=== PATIENT | female | born 1935 | race Two or more races ===

== ENCOUNTER 2019-12-26 10:00 | Inpatient (IN) | payer MEDICARE, MEDICAID ==
[~2019-12-26] VITALS: Ht 170.2 cm; Wt 88.6 kg
[2019-12-26] MEDS ORDERED: PIPERACILLIN/TAZ 3.375G PREMIX 50 ML IV ONE (10:30)
[2019-12-26] MEDS ORDERED: VANCOMYCIN 1 G PREMIX 200 ML IV ONE (10:30)
[2019-12-26 11:06] LABS: CHLORIDE 100 mEq/L (98-107); HEMATOCRIT. 40.4 % (36.0-48.0); HEMOGLOBIN. 12.4 g/dL (12.0-16.0); MEAN CORPUSCULAR HEMOGLOBIN 26.7 pg (28.0-32.0); MEAN CORPUSCULAR VOLUME 87.3 fL (81.0-99.0); MEAN PLATELET VOLUME 8.5 fl (7.4-10.4); PLATELET 124 x1000/uL (130-400); RED BLOOD CELL COUNT 4.62 mill/uL (4.2-5.4); RED CELL DISTRIBUTION WIDTH 19.1 % (11.6-14.6)
[2019-12-26 11:20] LABS: PROTHROMBIN TIME 10.8 sec (9.6-11.0)
[2019-12-26] MEDS ORDERED: FUROSEMIDE 20MG/2ML VIAL IVP ONE (11:30)
[2019-12-26 11:38] LABS: CLARITY URINE CLEAR (CLEAR); COLOR URINE YELLOW (YELLOW); KETONES URINE NEGATIVE (NEGATIVE); LEUKOCYTE ESTERASE URINE NEGATIVE (NEGATIVE); NITRITE URINE NEGATIVE (NEGATIVE); OCCULT BLOOD URINE NEGATIVE (NEGATIVE); PROTEIN URINE TRACE (NEGATIVE); SPECIFIC GRAVITY URINE 1.016 (1.005-1.030)
[2019-12-26 11:42] LABS: NUCLEATED RED BLOOD CELLS 1 /100 WBC; PLATELET ESTIMATE SLIGHTLY DECREASED
[2019-12-26] MEDS ORDERED: IPRATROPIUM/ALBUTEROL 0.5-3(2.5)MG/3ML NEB HHN PRN (13:30)
[2019-12-26] MEDS ORDERED: ACETAMINOPHEN 325MG TABLET PO PRN (13:30)
[2019-12-26] MEDS ORDERED: DIPHENHYDRAMINE 50MG/ML VIAL IV PRN (13:30)
[2019-12-26] MEDS ORDERED: ONDANSETRON HCL 4MG/2ML INJ IV PRN (13:30)
[2019-12-26] MEDS ORDERED: CLONIDINE 0.1MG TABLET PO PRN (13:30)
[2019-12-26 13:43] LABS: PHOSPHORUS 4.9 mg/dL (2.5-4.9)
[2019-12-26] MEDS: ENOXAPARIN 40MG/0.4ML SYR SUBCUT SCH (14:54)
[2019-12-26] MEDS: LOSARTAN POTASSIUM 25 MG TABLET PO SCH (15:14)
[2019-12-26 15:19] LABS: BG CARBOXYHEMOGLOBIN 1.2 % (0.5-1.5); BG DEOXYHEMOGLOBIN 8.7 % (0.0-5.0); BG HCO3 ACT 50.4 mmol/L (22.0-26.0); BG METHEMOGLOBIN 0.2 % (0.0-1.5); BG OXYGEN SATURATION 91.2 % (92.0-98.5); BG OXYHEMOGLOBIN 89.9 % (94.0-97.0); BG PCO2 144.6 mmHg (35.0-45.0); BG PO2 68.1 mmHg (75.0-100.0); BG SAMPLE SITE LEFT BRACHIAL; BG TOTAL HEMOGLOBIN 12.6 g/dL (12.0-18.0); BG VENT MODE NASAL CANNULA
[2019-12-26 17:00] VITALS: BP 113/49
[2019-12-26 17:30] VITALS: BP 113/49
[2019-12-26 20:00] VITALS: BP 102/43
[2019-12-26] MEDS ORDERED: NON FORMULARY PATIENT HOME MED XX SCH (20:00)
[2019-12-26] MEDS ORDERED: CARV3.1242 PO (21:22)
[2019-12-26] MEDS ORDERED: AMLO5TAB88 PO (21:22)
[2019-12-26] MEDS ORDERED: FURO40TA5 PO (21:22)
[2019-12-26] MEDS ORDERED: APIX5TAB PO (21:22)
[2019-12-26] MEDS ORDERED: AMBR10TA3 PO (21:22)
[2019-12-26] MEDS: METHYLPREDNISOLONE SOD SUCC 40 MG/ML VIAL IV SCH (22:28)
[2019-12-27] VITALS: BP 106/49
[2019-12-27 04:00] VITALS: BP 103/42
[2019-12-27] MEDS: METHYLPREDNISOLONE SOD SUCC 40 MG/ML VIAL IV SCH ×3 (05:44→21:08)
[2019-12-27 07:43] VITALS: BP 100/36
[2019-12-27] MEDS: LOSARTAN POTASSIUM 25 MG TABLET PO SCH (08:38)
[2019-12-27] MEDS: ENOXAPARIN 40MG/0.4ML SYR SUBCUT SCH (08:39)
[2019-12-27] MEDS: FUROSEMIDE 40MG/4ML VIAL IV SCH (08:39)
[2019-12-27] MEDS ORDERED: FUROSEMIDE 40MG/4ML VIAL IV SCH ×2 (09:00)
[2019-12-27] MEDS: IPRATROPIUM/ALBUTEROL 0.5-3(2.5)MG/3ML NEB HHN SCH ×4 (09:05→21:57)
[2019-12-27 11:45] VITALS: BP 103/43
[2019-12-27] MEDS: AMBRISENTAN 10MG TABLET PO SCH (13:26)
[2019-12-27 15:39] VITALS: BP 112/44
[2019-12-27 20:19] VITALS: BP 95/57
[2019-12-28] VITALS: BP 113/42
[2019-12-28] MEDS: IPRATROPIUM/ALBUTEROL 0.5-3(2.5)MG/3ML NEB HHN SCH ×6 (00:36→21:55)
[2019-12-28 04:00] VITALS: BP 123/71
[2019-12-28] MEDS: METHYLPREDNISOLONE SOD SUCC 40 MG/ML VIAL IV SCH ×3 (06:11→21:25)
[2019-12-28 07:29] LABS: BASOPHILS % 0.1 % (0.0-2.0); HEMATOCRIT. 33.4 % (36.0-48.0); HEMOGLOBIN. 10.4 g/dL (12.0-16.0); LYMPHOCYTES % 9.9 % (20.0-50.0); MEAN CORPUSCULAR HEMOGLOBIN 26.5 pg (28.0-32.0); MEAN CORPUSCULAR VOLUME 85.7 fL (81.0-99.0); MEAN PLATELET VOLUME 8.9 fl (7.4-10.4); MONOCYTES % 10.2 % (2.0-8.0); NEUTROPHILS % 79.8 % (40.0-76.0); PLATELET 110 x1000/uL (130-400); RED CELL DISTRIBUTION WIDTH 18.7 % (11.6-14.6)
[2019-12-28 07:56] LABS: CHLORIDE 97 mEq/L (98-107)
[2019-12-28 08:00] VITALS: BP 132/51
[2019-12-28] MEDS: FUROSEMIDE 40MG/4ML VIAL IV SCH ×2 (08:25→16:43)
[2019-12-28] MEDS: LOSARTAN POTASSIUM 25 MG TABLET PO SCH (08:25)
[2019-12-28] MEDS: AMBRISENTAN 10MG TABLET PO SCH (08:25)
[2019-12-28] MEDS: ENOXAPARIN 40MG/0.4ML SYR SUBCUT SCH (08:25)
[2019-12-28 12:00] VITALS: BP 137/48
[2019-12-28] MEDS ORDERED: METOLAZONE 5MG TABLET PO SCH (14:30)
[2019-12-28 16:00] VITALS: BP 131/46
[2019-12-28] MEDS ORDERED: LORAZEPAM 2MG/ML CPJ IV NR (17:30)
[2019-12-28 20:30] VITALS: BP 130/54
[2019-12-29] VITALS: BP 141/57
[2019-12-29] MEDS ORDERED: HALOPERIDOL LACTATE 5MG/ML VIAL IM PRN
[2019-12-29] MEDS: IPRATROPIUM/ALBUTEROL 0.5-3(2.5)MG/3ML NEB HHN SCH ×6 (01:30→20:15)
[2019-12-29 04:00] VITALS: BP 131/57
[2019-12-29] MEDS: METHYLPREDNISOLONE SOD SUCC 40 MG/ML VIAL IV SCH ×3 (05:10→21:54)
[2019-12-29 06:40] LABS: BASOPHILS % 0.1 % (0.0-2.0); HEMOGLOBIN. 11.7 g/dL (12.0-16.0); MEAN CORPUSCULAR HEMOGLOBIN 26.6 pg (28.0-32.0); MEAN CORPUSCULAR VOLUME 86.2 fL (81.0-99.0); MONOCYTES % 6.9 % (2.0-8.0); PLATELET 107 x1000/uL (130-400); RED CELL DISTRIBUTION WIDTH 19.4 % (11.6-14.6)
[2019-12-29 07:00] LABS: CHLORIDE 96 mEq/L (98-107)
[2019-12-29 07:23] LABS: BG BASE EXCESS 18.1 mmol/L (-2.0-2.0); BG CARBOXYHEMOGLOBIN 0.7 % (0.5-1.5); BG HCO3 ACT 47.3 mmol/L (22.0-26.0); BG METHEMOGLOBIN 0.3 % (0.0-1.5); BG OXYGEN SATURATION 88.9 % (92.0-98.5); BG PCO2 82.7 mmHg (35.0-45.0); BG PH 7.375 (7.350-7.450); BG PO2 58.5 mmHg (75.0-100.0); BG SAMPLE SITE RIGHT BRACHIAL; BG TOTAL HEMOGLOBIN 12.2 g/dL (12.0-18.0); BG VENT MODE NASAL CANNULA
[2019-12-29 08:00] VITALS: BP 140/61
[2019-12-29] MEDS: LOSARTAN POTASSIUM 25 MG TABLET PO SCH (09:02)
[2019-12-29] MEDS: FUROSEMIDE 40MG/4ML VIAL IV SCH ×2 (09:02→16:34)
[2019-12-29] MEDS: ENOXAPARIN 40MG/0.4ML SYR SUBCUT SCH (09:06)
[2019-12-29] MEDS: AMBRISENTAN 10MG TABLET PO SCH (09:06)
[2019-12-29 12:00] VITALS: BP 119/44
[2019-12-29] MEDS ORDERED: ACETAZOLAMIDE SODIUM 500MG/VIAL IV SCH (16:00)
[2019-12-29 16:20] VITALS: BP 105/43
[2019-12-29 20:18] VITALS: BP 109/47
[2019-12-30] MEDS: IPRATROPIUM/ALBUTEROL 0.5-3(2.5)MG/3ML NEB HHN SCH ×4 (00:15→15:37)
[2019-12-30 00:28] VITALS: BP 103/45
[2019-12-30 04:00] VITALS: BP 94/43
[2019-12-30] MEDS: METHYLPREDNISOLONE SOD SUCC 40 MG/ML VIAL IV SCH ×2 (05:24→14:39)
[2019-12-30 07:32] LABS: BASOPHILS % 0.1 % (0.0-2.0); HEMATOCRIT. 37.2 % (36.0-48.0); HEMOGLOBIN. 11.5 g/dL (12.0-16.0); LYMPHOCYTES % 8.7 % (20.0-50.0); MEAN CORPUSCULAR HEMOGLOBIN 26.3 pg (28.0-32.0); MEAN PLATELET VOLUME 9.3 fl (7.4-10.4); MONOCYTES % 10.8 % (2.0-8.0); NEUTROPHILS % 80.4 % (40.0-76.0); PLATELET 114 x1000/uL (130-400); RED BLOOD CELL COUNT 4.38 mill/uL (4.2-5.4); RED CELL DISTRIBUTION WIDTH 19.4 % (11.6-14.6)
[2019-12-30 07:43] LABS: CHLORIDE 96 mEq/L (98-107)
[2019-12-30 08:00] VITALS: BP 127/54
[2019-12-30] MEDS: LOSARTAN POTASSIUM 25 MG TABLET PO SCH (08:35)
[2019-12-30] MEDS: ENOXAPARIN 40MG/0.4ML SYR SUBCUT SCH (08:35)
[2019-12-30] MEDS: FUROSEMIDE 40MG/4ML VIAL IV SCH ×2 (08:35→17:00)
[2019-12-30] MEDS: AMBRISENTAN 10MG TABLET PO SCH (08:35)
[2019-12-30 10:05] LABS: BG BASE EXCESS 2.2 mmol/L (-2.0-2.0); BG CARBOXYHEMOGLOBIN 0.3 % (0.5-1.5); BG DEOXYHEMOGLOBIN 9.3 % (0.0-5.0); BG FRACTION INSPIRED OXYGEN 32; BG HCO3 ACT 28.8 mmol/L (22.0-26.0); BG METHEMOGLOBIN 0.5 % (0.0-1.5); BG OXYGEN SATURATION 90.6 % (92.0-98.5); BG OXYHEMOGLOBIN 89.9 % (94.0-97.0); BG PCO2 54.2 mmHg (35.0-45.0); BG PH 7.344 (7.350-7.450); BG SAMPLE SITE RIGHT BRACHIAL; BG TOTAL HEMOGLOBIN 11.9 g/dL (12.0-18.0); BG VENT MODE NASAL CANNULA
[2019-12-30 12:00] VITALS: BP 106/49
[2019-12-30] MEDS ORDERED: LOSA25TA3 PO (13:02)
[2019-12-30] MEDS ORDERED: P20 MT (13:02)
[2019-12-30] MEDS ORDERED: PANT20TA3 MT (13:02)
[2019-12-30 16:00] VITALS: BP 105/45
[2019-12-30 17:07] VITALS: BP 105/45
[2019-12-31] MEDS ORDERED: PREDNISONE 20MG TABLET PO SCH (09:00)
== END 2019-12-30 19:11 | disposition home health service (06) | DRG 291 ==
LOC: ER 10:00 → EDBEDREQ 11:32 → EDBEDREQSVC 11:32 → EDBEDREQTM 11:32 → EDBEDREQSVC 12:14 → EDBEDREQ 12:14 → ENRESERV 15:34 → 6WST 17:31 → UNDODISIN 21:25
PROVIDERS: ADMIT Internal Medicine; ATTEND Internal Medicine
PROC: 5A09557 Assistance with Respiratory Ventilation, Greater than 96 Consecutive Hours, Continuous Positive Airway Pressure (ICD-10-PCS; principal; 2019-12-26)
DX: I11.0 Hypertensive heart disease with heart failure (principal); J96.21 Acute and chronic respiratory failure with hypoxia; J96.22 Acute and chronic respiratory failure with hypercapnia; J44.1 Chronic obstructive pulmonary disease with (acute) exacerbation; E87.2 Acidosis; D68.69 Other thrombophilia; L03.116 Cellulitis of left lower limb; L03.115 Cellulitis of right lower limb; I50.33 Acute on chronic diastolic (congestive) heart failure; I42.9 Cardiomyopathy, unspecified; I27.20 Pulmonary hypertension, unspecified; G47.33 Obstructive sleep apnea (adult) (pediatric); I87.2 Venous insufficiency (chronic) (peripheral); I48.0 Paroxysmal atrial fibrillation; I25.10 Atherosclerotic heart disease of native coronary artery without angina pectoris; F41.9 Anxiety disorder, unspecified; K21.9 Gastro-esophageal reflux disease without esophagitis; M19.90 Unspecified osteoarthritis, unspecified site; Z99.81 Dependence on supplemental oxygen; Z95.810 Presence of automatic (implantable) cardiac defibrillator; Z79.01 Long term (current) use of anticoagulants; Z87.440 Personal history of urinary (tract) infections; Z79.899 Other long term (current) drug therapy
CPT/HCPCS: 36415; 36600; 71045; 80048; 80053; 81003; 82375; 82805; 82962; 83605; 83735; 83880; 84100; 84145; 84484; 85025; 93005; 93306; 93970; 94640; 94660; 99291; J1120; J1200; J1650; J1940; J2060; J2543; J2920; J3370